=== PATIENT | male | born 1985 | race Hispanic/Latino ===

== ENCOUNTER 2019-08-18 20:07 | Emergency (ER) | payer BC, OTHER ==
--- NOTE | 2019-08-18 20:17 | Event Note ---
ED Screening Note Date of service: 08/18/19 Time: 20:12 ED Screening Note: This is a 33 y.o. M. that presents to the ER with laceration to right distal finger. Patient states a large tire fell on his finger while at work. This initial assessment/diagnostic orders/clinical plan/treatment(s) is/are subject to change based on patients health status, clinical progression and re- assessment by fellow clinical providers in the ED. Further treatment and workup at subsequent clinical providers discretion. Patient/guardian urged not to elope from the ED as their condition may be serious if not clinically assessed and managed. Initial orders include: XR right fingers
--- NOTE | 2019-08-18 20:47 | XRay Report ---
XR finger(s) 2+V RT INDICATION / CLINICAL INFORMATION: laceration 1st distal finger. COMPARISON: None available. FINDINGS: BONES/JOINT(S): There is a tiny chip fracture along the volar aspect of the tuft of the distal phalan x in the right thumb. Overall joint alignment appears normal. SOFT TISSUES: No significant abnormality. ADDITIONAL FINDINGS: None. Signer Name: Harvey Warren MD Signed: 08/18/2019 8:43 PM Workstation Name: [id number]
--- NOTE | 2019-08-18 22:50 | Emergency Department Report ---
ED Upper Extremity Inj HPI - General Chief Complaint: Extremity Injury, Lower Stated Complaint: RIGHT THUMB INJURY Time Seen by Provider: 08/18/19 20:12 Source: patient Mode of arrival: Ambulatory Limitations: No Limitations - History of Present Illness Initial Comments: Was working on a tire accident was crushed his right thumb but prior to arrival when the tire had fallen. Pressure did throbbing pain since the onset no numbness or tingling no broken skin MD Complaint: Injury to:: right, finger -: Gradual Other Extremity Injury: Fingers: Right Handedness: right Place: work Improves With: none Worsens With: none Context: direct blow Associated Symptoms: denies other symptoms. denies: weakness, numbness, nausea/vomiting, heard/felt popping sensat - Related Data Previous Rx's Medication Instructions Recorded Last Taken Type Acetaminophen/Codeine [Tylenol #3] 1 tab PO Q6H PRN #15 tab 08/19/19 Unknown Rx Chlorhexidine Gluconate 10 ml TP BID #240 liquid 08/19/19 Unknown Rx [Antiseptic Skin Cleanser] cephALEXin [Keflex] 500 mg PO Q6HR #28 capsule 08/19/19 Unknown Rx Allergies Allergy/AdvReac Type Severity Reaction Status Date / Time No Known Allergies Allergy Verified 08/18/19 20:10 ED Review of Systems ROS: Stated complaint: RIGHT THUMB INJURY Other details as noted in HPI Comment: All other systems reviewed and negative ED Past Medical Hx - Past Medical History Previous Medical History?: Yes - Surgical History Past Surgical History?: Yes Additional Surgical History: right arm, - Medications Home Medications: Home Medications Medication Instructions Recorded Confirmed Last Taken Type Acetaminophen/Codeine [Tylenol #3] 1 tab PO Q6H PRN #15 tab 08/19/19 Unknown Rx Chlorhexidine Gluconate 10 ml TP BID #240 liquid 08/19/19 Unknown Rx [Antiseptic Skin Cleanser] cephALEXin [Keflex] 500 mg PO Q6HR #28 capsule 08/19/19 Unknown Rx ED Physical Exam - General Limitations: No Limitations General appearance: alert, in no apparent distress - Head Head exam: Present: atraumatic, normocephalic - Eye Eye exam: Present: normal appearance, PERRL, EOMI Pupils: Present: normal accommodation - ENT ENT exam: Present: normal exam, normal orophraynx, mucous membranes moist - Neck Neck exam: Present: normal inspection, full ROM. Absent: meningismus, lymphadenopathy, thyromegaly - Respiratory Respiratory exam: Present: normal lung sounds bilaterally. Absent: respiratory distress, wheezes, rales, chest wall tenderness, accessory muscle use - Cardiovascular Cardiovascular Exam: Present: regular rate, normal rhythm. Absent: bradycardia, tachycardia, systolic murmur, diastolic murmur, rubs, gallop - GI/Abdominal GI/Abdominal exam: Present: soft, normal bowel sounds - Rectal Rectal exam: Present: deferred - Extremities Exam Extremities exam: Present: normal inspection - Expanded Upper Extremity Exam Right Hand Wrist exam: Present: tenderness, swelling, nail avulsion, subungual hematoma. Absent: deformity, crepidus, dislocation Hand L/R Back: 1 - Swelling with a partial fingernail level of motion at the level of the matrix. Small tear noted at the matrix as well. Neuro motor exam: Present: wrist extension intact, thumb opposition intact, thumb adduction intact Vascular: Present: radial pulse, ulnar pulse - Back Exam Back exam: Present: normal inspection - Neurological Exam Neurological exam: Present: alert, oriented X3, CN II-XII intact - Psychiatric Psychiatric exam: Present: normal affect, normal mood - Skin Skin exam: Present: warm, dry, intact, normal color. Absent: rash ED Course Vital Signs 08/18/19 08/18/19 20:11 23:05 Temperature 98.2 F Pulse Rate 85 Respiratory 18 18 Rate Blood Pressure 125/87 O2 Sat by Pulse 98 Oximetry - Procedure Description Procedures done: Impression draped in sterile fashion anesthesia achieved with bupivacaine 0.5% in the form of a digital block. Copious amounts of irrigation was used for wound cleansing with chlorhexidine and Betadine. The fingernail was relocated to the nailbed and the matrix electrocautery was used for trephination and the fingernail was anchored with a 3-0 nylon 2 ED Medical Decision Making - Radiology Data Radiology results: report reviewed [facility] [address] [place] [address] XRay Report Signed Patient: JERRY HART JR MR#: [id number] : 1985 Acct:[id number] Age/Sex: 33 / M ADM Date: 08/18/19 Loc: ED Attending Dr: Ordering Physician: KATIE PANTOJA Date of Service: 08/18/19 Procedure(s): XR finger(s) 2+V RT Accession Number(s): [id number] cc: KATIE PANTOJA Fluoro Time In Minutes: XR finger(s) 2+V RT INDICATION / CLINICAL INFORMATION: laceration 1st distal finger. COMPARISON: None available. FINDINGS: BONES/JOINT(S): There is a tiny chip fracture along the volar aspect of the tuft of the distal phalanx in the right thumb. Overall joint alignment appears normal. SOFT TISSUES: No significant abnormality. ADDITIONAL FINDINGS: None. - Medical Decision Making 33-year-old male status post tire crush injury to the finger resulting in a volar avulsion injury to the first phalange E however fragment was very minimal. There is a partial fingernail avulsion with skin tear which was repaired. The wound was irrigated and cleaned. Was placed on antibiotics and pain medication anesthesia was achieved with a digital block. He's been encouraged to follow up and reevaluation in 2-3 days and advised to have the cyst the sutures removed in 7 days. Critical care attestation.: If time is entered above; I have spent that time in minutes in the direct care of this critically ill patient, excluding procedure time. ED Disposition Clinical Impression: Finger fracture, Fingernail avulsion, partial Disposition: DC- TO HOME OR SELFCARE Is pt being admited?: No Does the pt Need Aspirin: No Condition: Stable Instructions: Subungual Hematoma (ED), Finger Fracture (ED) Additional Instructions: Please rest, ice and elevate the affected extremity. Please take Motrin 600mg every 8 hours, as needed, for pain (take with food). Follow up with Orthopedic Surgery in 1-2 days for further evaluation - please call for any appointment. Keep splint/cast clean, dry and on. Use sling/crutches. Please return to ED immediately for increased pain, tingling/numbness, swelling, redness, and fever Prescriptions: Chlorhexidine Gluconate [Antiseptic Skin Cleanser] 10 ml TP BID #240 liquid cephALEXin [Keflex] 500 mg PO Q6HR #28 capsule Referrals: PRIMARY CARE, [Primary Care Provider] - 3-[address] [facility] [Provider Group] - 3-5 Days
[2019-08-18] MEDS ORDERED: HYDROcodone/ACETAMINOPHEN 5-325 MG TAB PO STA (22:56)
[2019-08-18] MEDS ORDERED: BUPIVACAINE/PF (0.5%) 5 MG/1 ML 10 ML VIAL INFILTRATI ONE (22:56)
[2019-08-18] MEDS ORDERED: TETANUS,DIPH,PERTUSS(ACELL) VACCINE 0.5 ML SYRINGE IM ONE (23:16)
[2019-08-19 03:15] VITALS: BP 129/83
== END 2019-08-19 03:15 | disposition home or self-care (01) ==
LOC: ED 20:07
DX: S62.601A Fracture of unspecified phalanx of left index finger, initial encounter for closed fracture (principal); S61.301A Unspecified open wound of left index finger with damage to nail, initial encounter; Z79.899 Other long term (current) drug therapy; W22.8XXA Striking against or struck by other objects, initial encounter; Y93.89 Activity, other specified; Y92.69 Other specified industrial and construction area as the place of occurrence of the external cause; Y99.8 Other external cause status
CPT/HCPCS: 90471; 90715